=== PATIENT | female | born 1950 | race Two or more races ===

== ENCOUNTER 2020-11-29 07:00 | Inpatient (IN) | payer OTHER ==
[~2020-11-29] VITALS: Ht 160 cm; Wt 63.5 kg
[2020-11-29] MEDS ORDERED: MIRTAZAPINE PO (09:51)
[2020-11-29] MEDS ORDERED: ARICEPT5 MG PO (09:52)
[2020-11-29] MEDS ORDERED: TAMOXIFEN CITRA20 MG PO (09:53)
[2020-11-29] MEDS ORDERED: SERT PO (09:53)
[2020-11-29] MEDS ORDERED: [UNRECOGNIZED DRUG - OTHER] PO (09:54)
[2020-11-29] MEDS ORDERED: CLONAZE PO (09:55)
[2020-11-29] MEDS ORDERED: CRESTOR20 MG PO (09:55)
[2020-12-04] MEDS ORDERED: CLONAZEPAM0.5 MG ×2 (15:23→15:26)
[2020-12-04] MEDS ORDERED: MIRTAZAPINE7.5 MG PO (15:24)
[2020-12-04] MEDS ORDERED: SERTRALINE HCL50 MG (15:25)
[2020-12-04] MEDS ORDERED: PANTOPRAZOLE SO40 MG (15:25)
[2020-12-04] MEDS ORDERED: PANTOPRAZOLE SO20 MG (15:25)
[2020-12-04] MEDS ORDERED: RAZADYNE ER16 MG (15:26)
[2020-12-04] MEDS ORDERED: STOOL SOFTENER50 MG (15:27)
[2020-12-10] MEDS ORDERED: OXYC1TAB9 PO (13:05)
[2020-12-10] MEDS ORDERED: POLY119PG PO (13:05)
== END 2020-12-10 16:38 | disposition home or self-care (01) | DRG 330 ==
LOC: EDUNIT# 07:00 → SURH 12-04 07:00 → OB/GYN 12-04 10:06 → O/R 12-04 10:06 → SURH 12-04 10:15 → OB/GYN 12-04 20:56 → SURG 12-05 14:33
PROVIDERS: ADMIT Colon & Rectal Surgery; ATTEND Colon & Rectal Surgery
PROC: 0DBM4ZZ Excision of Descending Colon, Percutaneous Endoscopic Approach (ICD-10-PCS; principal; 2020-12-04)
PROC: 07BC4ZX Excision of Pelvis Lymphatic, Percutaneous Endoscopic Approach, Diagnostic (ICD-10-PCS; 2020-12-04)
PROC: 0DJD8ZZ Inspection of Lower Intestinal Tract, Via Natural or Artificial Opening Endoscopic (ICD-10-PCS; 2020-12-04)
DX: C18.5 Malignant neoplasm of splenic flexure (principal); C18.6 Malignant neoplasm of descending colon; D64.9 Anemia, unspecified

== ENCOUNTER 2020-12-03 09:55 | Day surgery (SDC) | payer OTHER ==
[~2020-12-03 09:55] MED LIST: ARICEPT5 MG PO; CLONAZE PO; CRESTOR20 MG PO; MIRTAZAPINE PO; SERT PO; TAMOXIFEN CITRA20 MG PO; [UNRECOGNIZED DRUG - OTHER] PO
[2020-12-04] MEDS ORDERED: CLONAZEPAM0.5 MG ×2 (15:23→15:26)
[2020-12-04] MEDS ORDERED: MIRTAZAPINE7.5 MG PO (15:24)
[2020-12-04] MEDS ORDERED: PANTOPRAZOLE SO20 MG (15:25)
[2020-12-04] MEDS ORDERED: PANTOPRAZOLE SO40 MG (15:25)
[2020-12-04] MEDS ORDERED: SERTRALINE HCL50 MG (15:25)
[2020-12-04] MEDS ORDERED: RAZADYNE ER16 MG (15:26)
[2020-12-04] MEDS ORDERED: STOOL SOFTENER50 MG (15:27)
== END 2020-12-03 16:40 | disposition home or self-care (01) ==
LOC: AMB-ENDOS 09:55
PROVIDERS: ATTEND Colon & Rectal Surgery
DX: K63.5 Polyp of colon (principal); K64.1 Second degree hemorrhoids; Z20.822 Contact with and (suspected) exposure to COVID-19